=== PATIENT | female | born 1965 | race Caucasian/White ===

== ENCOUNTER 2021-07-08 17:13 | Emergency (ER) | payer BC ==
[~2021-07-08] VITALS: Ht 170.2 cm; Wt 90.7 kg
[2021-07-08 17:47] LABS: PCO2 Arterial 73.2 mmHg (35-45); PO2 Arterial 49.3 mmHg (80-100); pH Blood Arterial < 6.90 (7.35-7.45)
[2021-07-08 18:16] LABS: PCO2 Arterial 65.3 mmHg (35-45); PO2 Arterial 77.9 mmHg (80-100); pH Blood Arterial 6.89 (7.35-7.45)
[2021-07-08 18:39] LABS: Hematocrit 47.7 % (33.0-51.0); Hemoglobin 14.7 g/dL (11.5-16.0); Mean Corpuscular HGB 32.6 pg (26.0-34.0); Mean Corpuscular HGB Conc 30.8 g/dL (31.5-36.5); Mean Corpuscular Volume 106 fL (80-100); Mean Platelet Volume 9.6 fL (9.1-12.4); NRBC ABSOLUTE 0.76 K/mm3 (0.00-0.02); NRBC Auto 3.3 /100 WBC (0.0-0.2); Platelet Count 228 K/mm3 (150-400); RDW Standard Deviation 51.7 fL (35.1-46.3); Red Blood Cell Count 4.51 M/mm3 (3.80-5.20); White Blood Cell Count 23.04 K/mm3 (4.00-11.30)
[2021-07-08 18:52] LABS: Magnesium, Blood 3.8 mg/dL (1.6-2.4); Troponin I 0.348 ng/mL (0.000-0.040)
[2021-07-08 18:59] LABS: BAND PERCENT MAN 10 % (0-8); BASOPHILS PERCENT MAN 0 % (0-2); EOSINOPHILS PERCENT MAN 0 % (0-6); LYMPHOCYTES % ATYPICAL MANUAL 1 % (0-0); LYMPHOCYTES ABSOLUTE MAN 7.37 K/mm3 (0.84-5.20); LYMPHOCYTES PERCENT MAN 31 % (21-46); METAMYELOCYTE ABSOLUTE MAN 0.69 K/mm3 (0.00-0.00); METAMYELOCYTE PERCENT MAN 3 % (0-0); MONOCYTES ABSOLUTE MAN 2.07 K/mm3 (0.16-1.47); MONOCYTES PERCENT MAN 9 % (4-13); MYELOCYTE ABSOLUTE MAN 0.46 K/mm3 (0.00-0.00); MYELOCYTE PERCENT MAN 2 % (0-0); NEUTROPHILS ABSOLUTE MAN 12.44 K/mm3 (1.96-9.15); SEG NEUTROPHILS PERCENT MAN 44 % (41-73); TOTAL CELLS COUNTED 100
[2021-07-08 19:40] LABS: Calcium, Ionized (POC) 1.12 mmol/L (1.10-1.46); Chloride (POC) 90 mmol/L (98-108); Creatinine (POC) 2.5 mg/dL (0.6-1.0); Glucose (ISTAT POC) 379 mg/dL (70-99); Potassium (POC) 3.3 mmol/L (3.5-5.5); Sodium (POC) 128 mmol/L (135-148); Total CO2 (POC) 14 mmol/L (21-32)
[2021-07-08 19:58] LABS: SARS-Cov-2 (COVID-19) PCR, MMC POSITIVE (NEGATIVE)
== END 2021-07-08 23:28 ==
LOC: EDBD 17:13 → ER 17:13
PROVIDERS: Student in an Organized Health Care Education/Training Program
DX: U07.1 COVID-19 (principal); I46.9 Cardiac arrest, cause unspecified; J93.9 Pneumothorax, unspecified; J96.91 Respiratory failure, unspecified with hypoxia
CPT/HCPCS: 31500; 32551; 36600; 51702; 71045; 80047; 82803; 83735; 84484; 85014; 85025; 92950; 92953; 93005; 93010; 94002; 96365-59; 96375-59; 96376-59; 99291-25; J0171; J3010; J7050; J7060; U0004